=== PATIENT | female | born 1950 | race Caucasian/White ===

== ENCOUNTER → 2018-07-03 | Outpatient (CLI) | payer MEDICARE ==
--- NOTE | 2018-07-03 14:13 | PCVCIMAG ---
EXAM: BILATERAL RENAL ULTRASOUND AND BILATERAL RENAL DUPLEX INDICATION: Hypertension FINDINGS: Right kidney: Length measures 8.6 cm. No hydronephrosis or extensive renal scarring. Right renal duplex: Adequate technical quality. No sonographic evidence of renal artery stenosis. The aortic to renal artery ratio is 2.3. The renal vein is patent. Left kidney: Length measures 8.2 cm. No extensive renal scarring. Minimal pyelocaliectasis. Left renal duplex: Adequate technical quality. No sonographic evidence of renal artery stenosis. The aortic to renal artery ratio is 2.0. The renal vein is patent. Bladder: No obvious abnormalities. IMPRESSION: No significant renal artery stenosis. Minimal left pyelocaliectasis. LOC:[place] [id number]
--- NOTE | 2018-07-03 17:35 | PCVCIMAG ---
APPROVED REPORT Study performed: 07/03/2018 12:16:48 EXAM: Comprehensive 2D, Doppler, and color-flow Echocardiogram Patient Location: Echo lab Room #: 2Status: routine BSA: 1.51 HR: 55 bpmBP: 186/96 mmHg Rhythm: NSR Other Information Study Quality: Good Risk Factors: Cardiac Risk Factors: HTN Indications Hypertension/HDD 2D Dimensions IVSd: 8.90 (7-11mm)LVOT Diam: 20.97 (18-24mm) LVDd: 41.79 mm PWd: 7.94 (7-11mm)Ascending Ao: 23.71 (22-36mm) LVDs: 22.20 (25-40mm) Left Atrium: 30.07 (27-40mm) Aortic Root: 19.04 mm LV Single Plane 4CH: 53.48 % LV Single Plane 2CH: 64.21 % Biplane EF: 58.0 % Volumes Left Atrial Volume (Systole) Single Plane 4CH: 43.16 mLSingle Plane 2CH: 62.59 mL Biplane LA Volume: 56.00 mLLA ESV Index: 37.00 mL/m2 Aortic Valve AoV Peak Broderick.: 1.40 m/s AO Peak Gr.: 7.87 mmHgLVOT Max P.53 mmHg LVOT Max V: 0.94 m/s GEORGE Vmax: 2.31 cm2 AI Vmax: 4.11 m/s AI [place]: 2.12 m/s2 AI PHT: 561.56 ms Mitral Valve E/A Ratio: 1.1 MV Decel. Time: 232.23 ms MV E Max Broderick.: 0.91 m/s MV A Broderick.: 0.82 m/s IVRT: 96.89 ms TDI E/Lateral E': 11.38E/Medial E': 18.20 Medial E' Broderick.: 0.05 m/s Lateral E' Broderick.: 0.08 m/s Pulmonary Valve PV Peak Broderick.: 0.93 m/sPV Peak Gr.: 3.45 mmHg Pulmonary Vein P Vein S: 0.92 m/sP Vein A: 0.44 m/s P Vein D: 0.60 m/sP Vein A Dur.: 110.7 msec P Vein S/D Ratio: 1.53 Tricuspid Valve TR Peak Broderick.: 2.64 m/s TR Peak Gr.: 27.80 mmHg TV Vmax: 0.59 m/sPA Pressure: 35.00 mmHg Left Ventricle The left ventricle is normal size. There is normal LV segmental wall motion. There is normal left ventricular wall thickness. Left ventricular systolic function is normal. The left ventricular ejection fraction is within the normal range. LVEF is 55-60%. The left ventricular diastolic function is normal. Right Ventricle The right ventricle is normal size. The right ventricular systolic function is normal. Atria The left atrium size is normal. The right atrium size is normal. Aortic Valve Aortic valve is trileaflet. Aortic valve leaflets are sclerotic but open well. Mild aortic regurgitation. There is no aortic valvular stenosis. Mitral Valve Mitral valve is normal in structure. Mild to moderate mitral regurgitation. No evidence of mitral valve stenosis. Tricuspid Valve The tricuspid valve is normal in structure. Mild tricuspid regurgitation. Mild pulmonary hypertension with a PA pressure if 35 mmHg. Pulmonic Valve The pulmonary valve is normal in structure. There is no pulmonic valvular regurgitation. Great Vessels The aortic root is normal in size. The ascending aorta is normal in size. Aortic arch is normal in caliber. IVC is normal in size and collapses >50% with inspiration. Pericardium There is no pericardial effusion. There is no pleural effusion. <Conclusion> The left ventricle is normal size. LVEF is 55-60%. The left ventricular diastolic function is normal. The right ventricle is normal size. The left atrium size is normal. Aortic valve is trileaflet. Aortic valve leaflets are sclerotic but open well. Mild aortic regurgitation. Mild to moderate mitral regurgitation. Mild to moderate mitral regurgitation. Mild tricuspid regurgitation. Mild pulmonary hypertension with a PA pressure if 35 mmHg. The aortic root is normal in size. There is no pericardial effusion.
== END | disposition home or self-care (01) ==
LOC: PCVCIMAG 12:34
PROVIDERS: ATTEND Internal Medicine Cardiovascular Disease
DX: I08.3 Combined rheumatic disorders of mitral, aortic and tricuspid valves (principal); I10 Essential (primary) hypertension; R07.9 Chest pain, unspecified; R09.89 Other specified symptoms and signs involving the circulatory and respiratory systems; E78.01 Familial hypercholesterolemia; R06.02 Shortness of breath; Z82.49 Family history of ischemic heart disease and other diseases of the circulatory system; Z87.891 Personal history of nicotine dependence
CPT/HCPCS: 36415; 76770; 80061; 93005; 93306; 93975; G0463

== ENCOUNTER → 2018-07-03 | Outpatient (CLI) | payer MEDICARE | END | disposition home or self-care (01) | LOC: PCVCCLINIC 11:43 | PROVIDERS: ATTEND Internal Medicine Cardiovascular Disease | DX: I10 Essential (primary) hypertension (principal); R07.9 Chest pain, unspecified; I34.1 Nonrheumatic mitral (valve) prolapse; R09.89 Other specified symptoms and signs involving the circulatory and respiratory systems; E78.01 Familial hypercholesterolemia; R06.02 Shortness of breath; Z82.49 Family history of ischemic heart disease and other diseases of the circulatory system; Z87.891 Personal history of nicotine dependence; Z79.82 Long term (current) use of aspirin | CPT/HCPCS: 36415; 80061; 93005; G0463 ==

== ENCOUNTER → 2019-04-22 | Outpatient (CLI) | payer MEDICARE ==
--- NOTE | 2019-04-22 16:08 | PCVCIMAG ---
APPROVED REPORT Study performed: 04/22/2019 15:12:49 Exam: Stress Echocardiogram Indication: Hypertension, Dyspnea, fam hx of cad, hlp Patient Location: Echo lab Stress Nurse: Mami Tolentino RN Status: routine Ht: 5 ft 2 in HR: 65 bpm BP: 200/100 mmHg Rhythm: NSR Medical History Medical History: Mitral valve prolapse Procedure The patient underwent an Exercise Stress Test using the Raheel Protocol. Blood pressure, heart rate, and EKG were monitored. An Echocardiogram was performed by sterile supply technician in four stages in quad fashion. At peak stress, four selected images were obtained and placed side by side with resting images for comparison. Stress Test Details Stress Test: Exercise stress testing was performed using a Raheel protocol. HR Resting HR: 65 bpmMax Heart Rate (APMHR): 153 bpm Max HR Achieved: 110 bpmTarget HR (85% APMHR): 130 bpm % of APMHR: 71 Recovery HR: 68 bpm HR response to stress: Blunted HR response to stress BP Resting BP: 200/100 mmHg Max BP: 210/100 mmHg Recovery BP: 204/104 mmHg BP response to stress: Normal blood pressure response to stress. ECG Resting ECG: Sinus Rhythm Stress ECG: Sinus Rhythm Recovery ECG: Sinus Rhythm Recovery Arrhythmia: PVC's Clinical Reason for Termination: Maximal effort Exercise duration: 5 min 57 sec Highest Stage Achieved: Stage 2: 2.5 mph at 12% grade. Exercise capacity: 7.00 METs Overall Exercise Capacity for Age: Poor Stress ECG Conclusion Submaximal stress test. Patient unable to achieve adequate heart rate. Moderate Mitral regurgitation. Mild to moderate aortic insuffficiency. Mild tricuspid regurgitation. Pulmonary artery pressure is 40mmHg. Pre-Stress Echo The resting Echocardiogram showed normal left ventricular contractility with an estimated Ejection Fraction of about 55-60%. Normal wall motion in all segments on baseline images. Post-Stress Echo The stress Echocardiogram showed normal left ventricular contractility with an estimated Ejection Fraction of about 60-65%. Normal augmentation of wall motion in all segments on post stress images. Clinical No clinical or ECG evidence for ischemia. Conclusion Clinical Response: Non-ischemic Exercise Capacity: Below Average Stress ECG Response: Non-ischemic Stress Echo Images: Non-ischemic The left ventricle is normal in size and wall thickness in both the rest and stress images. Other Information Study Quality: Adequate <Conclusion> The left ventricle is normal in size and wall thickness in both the rest and stress images.
== END | disposition home or self-care (01) ==
LOC: PCVCIMAG 13:19
PROVIDERS: ATTEND Internal Medicine Cardiovascular Disease
DX: I10 Essential (primary) hypertension (principal); E78.01 Familial hypercholesterolemia; I34.1 Nonrheumatic mitral (valve) prolapse; Z82.49 Family history of ischemic heart disease and other diseases of the circulatory system; Z87.891 Personal history of nicotine dependence
CPT/HCPCS: 93325; 93351